=== PATIENT | male | born 1970 | race Caucasian/White ===

== ENCOUNTER 2023-02-12 21:31 | Emergency (ER) | payer BC ==
[2023-02-12] MEDS ORDERED: Sodium Chloride 0.9% 10 ML Syringe FLUSH PRN (21:43)
[2023-02-12] MEDS ORDERED: cefTRIAXone 1 GM in Sodium Chloride 0.9% 100 ML IV ONE (21:43)
[2023-02-12] MEDS ORDERED: Ketorolac 15 MG/ML SDV IVPUSH ONE (21:44)
[2023-02-12] MEDS ORDERED: traMADol 50 MG Tab PO ONE (21:44)
[2023-02-12] MEDS ORDERED: cloNIDine 0.1 MG Tab PO ONE (21:48)
[2023-02-12 21:55] LABS: BASOPHILS ABSOLUTE AUTO 0.02 K/uL (0.00-0.20); BASOPHILS PERCENT AUTO 0.2 % (0.0-2.0); EOSINOPHILS ABSOLUTE AUTO 0.18 K/uL (0.00-0.50); EOSINOPHILS PERCENT AUTO 1.4 % (0.0-5.0); HEMATOCRIT 45.2 % (39.0-49.0); HEMOGLOBIN 15.6 g/dL (13.1-16.8); LYMPHOCYTES ABSOLUTE AUTO 2.83 K/uL (0.50-3.50); LYMPHOCYTES PERCENT AUTO 22.1 % (10.0-50.0); MEAN CORPUSCULAR HEMOGLOBIN 32.3 pg (28.2-33.3); MEAN CORPUSCULAR HGB CONC 34.5 g/dL (31.7-36.0); MEAN CORPUSCULAR VOLUME 93.6 fL (84.0-98.0); MONOCYTES ABSOLUTE AUTO 1.06 K/uL (0.00-1.00); MONOCYTES PERCENT AUTO 8.3 % (2.0-14.0); NEUTROPHILS ABSOLUTE AUTO 8.71 K/uL (1.40-7.00); PLATELET COUNT,PLT 254 K/uL (150-350); RED BLOOD CELL COUNT 4.83 M/uL (4.33-5.41); RED CELL DISTRIBUTION WIDTH 12.9 % (11.2-14.1); WHITE BLOOD CELL COUNT,WBC 12.8 K/uL (4.0-10.2)
[2023-02-12 22:14] LABS: ALANINE AMINOTRANSFERASE,ALT 63 U/L (12-78); ALBUMIN 4.1 g/dL (3.4-5.0); ALKALINE PHOSPHATASE 49 IU/L (46-116); ANION GAP 11.3 meq/L (7-15); ASPARTATE AMNIOTRANSFERASE,AST 29 U/L (15-37); BILIRUBIN TOTAL 0.9 mg/dL (0.2-1.0); BLOOD UREA NITROGEN,BUN 9 mg/dL (7-18); CARBON DIOXIDE,CO2 26.7 mmol/L (21.0-32.0); CHLORIDE,CL 102 mmol/L (98-107); GLUCOSE RANDOM 116 mg/dL (70-99); POTASSIUM,K 3.7 mmol/L (3.5-5.1); PROTEIN TOTAL,TP 7.5 g/dL (6.4-8.2); SODIUM,NA 140 mmol/L (136-145)
[2023-02-12 22:15] LABS: ESTIMATED GFR 82 mL/min (>=60)
[2023-02-12] MEDS ORDERED: Take Home: traMADol 50 MG, 4 Tab Pack PO ONE (22:49)
== END 2023-02-12 23:13 | disposition home or self-care (01) ==
LOC: LL.ED 21:31
DX: M25.422 Effusion, left elbow (principal); I10 Essential (primary) hypertension; J44.9 Chronic obstructive pulmonary disease, unspecified; Z79.899 Other long term (current) drug therapy
CPT/HCPCS: 36415; 80053; 84550; 85025; 87040; 96365; 96375; 99283; 99283-25; A9270-GY; J0696; J1885; J3490